=== PATIENT | female | born 1985 | race Caucasian/White ===

== ENCOUNTER 2018-11-13 15:55 | Emergency (ER) | payer OTHER ==
[2018-11-13] MEDS ORDERED: fentaNYL 100 MCG/2 ML INJ IVP ONE (16:23)
--- NOTE | 2018-11-13 16:24 | EDPHY ---
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 Today, approximately 30 min prior to arrival, patient developed an abrupt onset of severe lower abdominal midline and slightly to the right pain. No nausea or vomiting. No fevers proceeding. No diarrhea. No urinary complaints. No back pain. No abnormal vaginal bleeding. Patient's last period was about 3 weeks ago. She had been using a new vial ring for control but has been off of it for the last 2 months. Patient noted to be complaining of dizziness on arrival. She is visibly hyperventilating and also had reported tingling on her face. REVIEW OF SYSTEMS: A comprehensive 10 system review of systems was reviewed and is otherwise negative aside from elements mentioned in the history of present illness and medical decision making. PAST MEDICAL HISTORY: Ovarian cysts, asthma. SOCIAL HISTORY: Positive marijuana use, nonsmoker, occasional alcohol. VITAL SIGNS Reviewed by me. GENERAL: Well-developed, well-nourished, uncomfortable appearing. Sitting upright, increased respiratory rate. HEENT: Atraumatic. Eyes: No icterus, no injection. Mouth: moist mucous membranes. No erythema or lesions. Neck: supple with no adenopathy. LUNGS: Clear to auscultation bilaterally, no wheezes, rhonchi or rales. CARDIAC: Regular rate and rhythm, no rubs, murmurs or gallops. ABDOMEN: Soft, no upper abdominal tenderness. Focal tenderness suprapubic and right adnexal. No tenderness at McBurney's point. Bowel sounds are normal. Mild distension. No guarding or rebound. BACK: No CVA tenderness. EXTREMITIES: No trauma. No edema. Range of motion is normal throughout. NEURO: Alert and oriented, grossly nonfocal. SKIN: Warm and dry, no rash. PSYCHIATRIC: Normal mentation, no agitation. - Personal History LMP (Females 10-55): 22-28 Days Ago Tetanus Vaccine Date: < 10 YEARS - Medical/Surgical History Hx Asthma: Yes Hx Chronic Respiratory Disease: No Hx Diabetes: No Hx Cardiac Disease: No Hx Renal Disease: No Hx Cirrhosis: No Hx Alcoholism: No Hx HIV/AIDS: No Hx Splenectomy or Spleen Trauma: No Other PMH: PREVIOUS OVARIAN CYSTS, asthma, ACL surg, hand surg - Social History Smoking Status: Never smoked Constitutional: Initial Vital Signs Temperature (C) 37.0 C 11/13/18 16:03 Heart Rate 74 11/13/18 16:03 Respiratory Rate 18 11/13/18 16:03 Blood Pressure 121/79 H 11/13/18 16:03 O2 Sat (%) 98 11/13/18 16:03 O2 Delivery Mode Room Air Allergies/Adverse Reactions: No Known Allergies Allergy (Unverified 11/13/18 16:02) Home Medications: Medication Instructions Recorded Hydrocodone/APAP 5/325 [[place] 1 tab PO Q6H PRN #10 tab 11/13/18 5/325 (RX)] Indomethacin 50 mg PO Q8 #20 capsule 11/13/18 Medical Decision Making - Diagnostics Imaging Results: Imaging Impressions Pelvic/Renal Ultrasound 11/13/18 16:21 Impression: There is an involuting mildly complex left ovarian 2.9 cm cyst with associated free fluid. There is no evidence of torsion. Findings were discussed with Gemini Bowers MD at 17:11, on 11/13/2018. Consider follow-up sonography at a different point in a future menstrual cycle in the next 8-12 weeks for reassessment, as clinically directed. ED Course/Re-evaluation: IV placed. Fentanyl given. Ultrasound ordered. Urine test: Negative. Urinalysis dip negative. Ultrasound demonstrates the collapsing 2.9 cm left ovarian cyst with fluid in the pelvis. Patient re-examined after returning from ultrasound. She is feeling better after the fentanyl. We discussed her ultrasound results. She will resume her NuVo Ring for hormonal suppression of her ovarian cyst. Discharged with a prescription for indomethacin as well as a short course of narcotics. Differential Diagnosis: The differential diagnosis for the patient's abdominal pain was considered including but not limited to ovarian cyst, pelvic inflammatory disease, ovarian torsion, urinary tract infection, related complications, and appendicitis. - Data Points Laboratory Results: 11/13/18 16:30 POC Sodium 142 mEq/L mEq/L (135-145) POC Potassium 3.7 mEq/L mEq/L (3.3-5.0) POC Chloride 108.0 mEq/L mEq/L (97-110) POC Total CO2 22 mEq/L mEq/L (22-31) POC BUN 14 mg/dL mg/dL (7-23) POC Creatinine 0.6 mg/dL mg/dL (0.6-1.0) POC Glucose 101 mg/dL H mg/dL (70-100) POC Calcium 10.1 mg/dL mg/dL (8.5-10.4) Medications Given: Discontinued Medications Fentanyl (Sublimaze) 50 mcg IVP EDNOW ONE Stop: 11/13/18 16:24 Last Admin: 11/13/18 16:30 Dose: 50 mcg Sodium Chloride (Ns) 1,000 mls @ 0 mls/hr IV ONCE ONE; Wide Open PRN Reason: Protocol Stop: 11/13/18 16:46 Last Admin: 11/13/18 17:11 Dose: 1,000 mls Ketorolac Tromethamine (Toradol) 30 mg IVP EDNOW ONE Stop: 11/13/18 16:46 Last Admin: 11/13/18 17:11 Dose: 30 mg Point of Care Test Results: CBC CBC Collection Date 11/13/18 CBC Collection Time 16:27 WBC 9.58 RBC 5.07 HGB 14.9 HCT 45.2 PLT 207 Neut # 6.47 Neut 67.6 LYMPH # 2.29 LYMPH 23.9 MCV 89.2 Chemistry 11/13/18 16:30 POC Sodium 142 mEq/L mEq/L (135-145) POC Potassium 3.7 mEq/L mEq/L (3.3-5.0) POC Chloride 108.0 mEq/L mEq/L (97-110) POC Total CO2 22 mEq/L mEq/L (22-31) POC BUN 14 mg/dL mg/dL (7-23) POC Creatinine 0.6 mg/dL mg/dL (0.6-1.0) POC Glucose 101 mg/dL H mg/dL (70-100) POC Calcium 10.1 mg/dL mg/dL (8.5-10.4) Urine Collection Date 11/13/18 Collection Time 16:25 HCG Results Negative Urine Dip Collection Date 11/13/18 Collection Time 16:25 Specific [place] (1.002-1.030) 1.015 PH (5.0-7.5) 8.0 Leukocytes (Negative) Negative Nitrites (Negative) Negative Protein (Negative) Negative Glucose (Negative) Negative Ketones (Negative) Negative Urobilnogen (0.2-1.0 EU) 0.2 Bilirubin (Negative) Negative Blood (Negative) Negative Departure - Departure Disposition: Home, Routine, Self-Care Clinical Impression: Lower abdominal pain Ovarian cyst Qualifiers: Laterality: left Qualified Code(s): N83.202 - Unspecified ovarian cyst, left side Condition: Good Instructions: Ruptured Ovarian Cyst (ED), Acute Abdominal Pain (ED) Additional Instructions: Please take indomethacin as needed for pain, anti inflammation, and antiprostaglandin effects. If indomethacin is not controlling her pain adequately, you may use hydrocodone. Please follow up with your primary care physician regarding the recurrent ovarian cyst. Referrals: NONE *PRIMARY CARE P,. [Primary Care Provider] - As per Instructions Prescriptions: Hydrocodone/APAP 5/325 [[place] 5/325 (RX)] 1 tab PO Q6H PRN #10 tab PRN Reason: Pain Indomethacin 50 mg PO Q8 #20 capsule
[2018-11-13] MEDS ORDERED: NS 1,000 ML IV ONE (16:45)
[2018-11-13] MEDS ORDERED: KETOROLAC 30 MG/1 ML SDV IVP ONE (16:45)
[2018-11-13] MEDS ORDERED: HYDROCODONE/APAP 5/325 TAB ONE (17:56)
[2018-11-13] MEDS ORDERED: HYDROCODONE/APAP 5/325 TAB PO ONE (17:57)
[2018-11-13 18:06] VITALS: BP 129/89
== END 2018-11-13 18:07 | disposition home or self-care (01) ==
LOC: CED 15:55
DX: R10.30 Lower abdominal pain, unspecified (principal); N83.202 Unspecified ovarian cyst, left side; E86.9 Volume depletion, unspecified
CPT/HCPCS: 76856-PO; 80048-ER; 96361-ER; 96374-ER; 96375-ER; J1885; J3010